=== PATIENT | male | born 1935 | race Caucasian/White ===

== ENCOUNTER 2018-04-16 05:02 | Inpatient (IN) | payer OTHER ==
[2018-04-16] MEDS ORDERED: morphine 2 MG INJ IV ×2 (06:30→14:30)
[2018-04-16] MEDS: ALBUTEROL/IPRATROPIUM (NEB) 3 ML AMP HHN ×4 (08:14→20:58)
[2018-04-16 12:24] LABS: ADD MAN DIFF? NO; BASOPHIL # 0.1 10^3/ul (0.0-0.1); BASOPHILS % 0.8 % (0.0-2.0); EOSINOPHILS # 0.1 10^3/ul (0.0-0.5); EOSINOPHILS % 1.5 % (0.0-7.0); HEMATOCRIT 30.2 % (42.0-52.0); LYMPHOCYTES # 1.3 10^3/ul (0.8-2.9); LYMPHOCYTES % 14.2 % (15.0-51.0); MEAN CORPUSCULAR HEMOGLOBIN 31.1 pg (29.0-33.0); MEAN CORPUSCULAR HGB CONC 33.1 g/dl (32.0-37.0); MEAN CORPUSCULAR VOLUME 93.8 fl (82.0-101.0); MEAN PLATELET VOLUME 9.3 fl (7.4-10.4); MONOCYTE # 0.9 10^3/ul (0.3-0.9); MONOCYTES % 9.9 % (0.0-11.0); NEUTROPHIL # 6.8 10^3/ul (1.6-7.5); NEUTROPHILS % 73.2 % (39.0-77.0); PLATELET COUNT 533 10^3/UL (140-415); RED BLOOD COUNT 3.22 10^6/ul (4.70-6.10); RED CELL DISTRIBUTION WIDTH 14.9 % (11.5-14.5)
[2018-04-16 12:24] LABS: WHITE BLOOD COUNT 9.3 10^3/ul (4.8-10.8)
[2018-04-16 12:42] LABS: ALANINE AMINOTRANSFERASE 68 IU/L (13-69); ALBUMIN 3.3 g/dl (3.3-4.9); ALBUMIN/GLOBULIN RATIO 0.76; ALKALINE PHOSPHATASE 465 IU/L (42-121); ANION GAP 15 (8-16); ASPARTATE AMINO TRANSFERASE 56 IU/L (15-46); BILIRUBIN,INDIRECT 0.1 mg/dl (0-1.1); BILIRUBIN,TOTAL 0.1 mg/dl (0.2-1.3); BLOOD UREA NITROGEN 48 mg/dl (7-20); CREATININE 5.66 mg/dl (0.61-1.24); GLUCOSE 113 mg/dl (70-220); TOTAL PROTEIN 7.6 g/dl (6.1-8.1)
[2018-04-16 12:44] LABS: CARBON DIOXIDE 31 mmol/L (21-31); CHLORIDE 90 mmol/L (97-110); POTASSIUM 3.9 mmol/L (3.5-5.1); SODIUM 132 mmol/L (135-144)
[2018-04-16] MEDS ORDERED: HYDROCODONE/APAP (5/325) TAB PO ×2 (14:30)
[2018-04-16] MEDS ORDERED: NACL 0.9% 3 ML SYG IV (14:30)
[2018-04-16] MEDS ORDERED: ACETAMINOPHEN 325 MG TAB PO (14:30)
[2018-04-16] MEDS ORDERED: ACETAMINOPHEN 650 MG SUPP PR (14:30)
[2018-04-16] MEDS ORDERED: ONDANSETRON 4 MG INJ IV (14:30)
[2018-04-16] MEDS: CALCIUM ACETATE 667 MG CAP PO (17:18)
[2018-04-16] MEDS: SEVELAMER 800 MG TAB PO (17:18)
[2018-04-16 17:21] LABS: INR 1.28; PROTIME 16.2 Sec (11.9-14.9); PT RATIO 1.3
[2018-04-16 17:22] LABS: IRON 41 ug/dl (35-150)
[2018-04-16 17:32] LABS: % IRON SATURATION 24 % SAT (22-52); TOTAL IRON BINDING CAPACITY 169 ug/dl (241-421)
[2018-04-16] MEDS: EPOETIN 10000 UNITS/1 ML INJ (ESRD) SC (18:05)
[2018-04-16] MEDS: LEVETIRACETAM 500 MG TAB PO (20:10)
[2018-04-16] MEDS ORDERED: LEVETIRACETAM 500 MG PO (21:00)
[2018-04-16 23:58] LABS: HEPATITIS B SURFACE ANTIGEN NEGATIVE (NEGATIVE)
[2018-04-17 00:35] LABS: HEPATITIS B SURFACE ANTIBODY POSITIVE (NEGATIVE)
[2018-04-17] MEDS: ALBUTEROL/IPRATROPIUM (NEB) 3 ML AMP HHN ×6 (00:47→21:48)
[2018-04-17] MEDS: hydrALAzine 20 MG INJ IV (04:57)
[2018-04-17] MEDS: PANTOPRAZOLE 40 MG INJ IV (06:52)
[2018-04-17] MEDS: LEVOTHYROXINE 50 MCG TAB PO (06:52)
[2018-04-17 07:34] LABS: ADD MAN DIFF? NO
[2018-04-17 07:40] LABS: WHITE BLOOD COUNT 9.9 10^3/ul (4.8-10.8)
[2018-04-17 07:40] LABS: BASOPHIL # 0.1 10^3/ul (0.0-0.1); BASOPHILS % 0.7 % (0.0-2.0); EOSINOPHILS # 0.2 10^3/ul (0.0-0.5); EOSINOPHILS % 1.7 % (0.0-7.0); HEMOGLOBIN 10.5 g/dl (14.0-18.0); LYMPHOCYTES # 1.4 10^3/ul (0.8-2.9); LYMPHOCYTES % 13.8 % (15.0-51.0); MEAN CORPUSCULAR HEMOGLOBIN 31.2 pg (29.0-33.0); MEAN CORPUSCULAR HGB CONC 32.8 g/dl (32.0-37.0); MEAN PLATELET VOLUME 9.4 fl (7.4-10.4); MONOCYTE # 0.9 10^3/ul (0.3-0.9); MONOCYTES % 9.4 % (0.0-11.0); NEUTROPHIL # 7.4 10^3/ul (1.6-7.5); NEUTROPHILS % 73.9 % (39.0-77.0); PLATELET COUNT 547 10^3/UL (140-415); RED BLOOD COUNT 3.37 10^6/ul (4.70-6.10); RED CELL DISTRIBUTION WIDTH 14.6 % (11.5-14.5)
[2018-04-17 07:57] LABS: ALANINE AMINOTRANSFERASE 60 IU/L (13-69); ALBUMIN 3.4 g/dl (3.3-4.9); ALBUMIN/GLOBULIN RATIO 0.73; ALKALINE PHOSPHATASE 499 IU/L (42-121); ANION GAP 13 (8-16); ASPARTATE AMINO TRANSFERASE 47 IU/L (15-46); BILIRUBIN,INDIRECT 0.3 mg/dl (0-1.1); BILIRUBIN,TOTAL 0.3 mg/dl (0.2-1.3); BLOOD UREA NITROGEN 19 mg/dl (7-20); CALCIUM 9.3 mg/dl (8.4-10.2); CARBON DIOXIDE 34 mmol/L (21-31); CHLORIDE 99 mmol/L (97-110); CHOL/HDL RATIO 2.1 RATIO; CHOLESTEROL 108 mg/dl (100-200); CREATININE 3.12 mg/dl (0.61-1.24); GLUCOSE 96 mg/dl (70-220); HDL CHOLESTEROL 50 mg/dl (31-75); LDL CHOLESTEROL,CALCULATED 47 mg/dl; MAGNESIUM 1.9 mg/dl (1.7-2.5); PHOSPHORUS 2.4 mg/dl (2.5-4.9); SODIUM 142 mmol/L (135-144); TRIGLYCERIDES 57 mg/dl (0-149)
[2018-04-17 08:13] LABS: T3 UPTAKE 44.5 % (23.5-40.5); T4 (THYROXINE) 8.1 ug/dl (5.5-11.0)
[2018-04-17] MEDS: SEVELAMER 800 MG TAB PO (08:21)
[2018-04-17] MEDS: CINACALCET 30 MG TAB PO (08:21)
[2018-04-17] MEDS: AMLODIPINE 10 MG TAB PO (08:22)
[2018-04-17] MEDS: CALCIUM ACETATE 667 MG CAP PO ×3 (08:22→18:30)
[2018-04-17] MEDS: LEVETIRACETAM 500 MG TAB PO ×2 (08:22→22:02)
[2018-04-17] MEDS: LORATADINE 10 MG TAB PO (08:22)
[2018-04-17] MEDS: FERROUS SULFATE (EC) 325 MG TAB PO (08:22)
[2018-04-17] MEDS: ASPIRIN (EC) 81 MG TAB PO (08:22)
[2018-04-17] MEDS: MULTIVIT/CA CARB/B CMPLX/FA TAB PO (08:22)
[2018-04-17] MEDS: METOPROLOL (XL) 50 MG TAB PO (08:23)
[2018-04-17] MEDS: BENAZEPRIL 40 MG TAB PO (08:25)
[2018-04-17] MEDS: LIDOCAINE 1% (MDV) 10 ML INJ (09:33)
[2018-04-17 10:13] LABS: ADD MAN DIFF? NO
[2018-04-17 10:14] LABS: WHITE BLOOD COUNT 18.8 10^3/ul (4.8-10.8)
[2018-04-17 10:14] LABS: BASOPHIL # 0.1 10^3/ul (0.0-0.1); BASOPHILS % 0.4 % (0.0-2.0); EOSINOPHILS # 0.2 10^3/ul (0.0-0.5); EOSINOPHILS % 1.1 % (0.0-7.0); HEMATOCRIT 32.3 % (42.0-52.0); HEMOGLOBIN 10.5 g/dl (14.0-18.0); LYMPHOCYTES # 1.4 10^3/ul (0.8-2.9); LYMPHOCYTES % 7.6 % (15.0-51.0); MEAN CORPUSCULAR HEMOGLOBIN 31.3 pg (29.0-33.0); MEAN CORPUSCULAR HGB CONC 32.5 g/dl (32.0-37.0); MEAN CORPUSCULAR VOLUME 96.4 fl (82.0-101.0); MEAN PLATELET VOLUME 9.3 fl (7.4-10.4); MONOCYTE # 1.1 10^3/ul (0.3-0.9); MONOCYTES % 5.8 % (0.0-11.0); NEUTROPHIL # 15.7 10^3/ul (1.6-7.5); NEUTROPHILS % 83.5 % (39.0-77.0); PLATELET COUNT 543 10^3/UL (140-415); RED BLOOD COUNT 3.35 10^6/ul (4.70-6.10); RED CELL DISTRIBUTION WIDTH 14.9 % (11.5-14.5)
[2018-04-17 10:58] LABS: FLUID GLUCOSE 106 mg/dl
[2018-04-17 11:03] LABS: FLUID TOTAL PROTEIN 5.2 g/dl
[2018-04-17] MEDS ORDERED: CEFEPIME 1GM/50 ML (PMX) 50 ML IVPB (12:30)
[2018-04-17] MEDS ORDERED: VANCOMYCIN IV PER PHARMACY XX (13:00)
[2018-04-17 14:27] LABS: LACTIC ACID 2.9 mmol/L (0.5-2.0)
[2018-04-17] MEDS: CEFEPIME 1GM/50 ML (PMX) 50 ML IVPB (14:40)
[2018-04-17] MEDS: morphine LIQ (10 MG/5 ML) CUP PO (14:57)
[2018-04-17] MEDS: VANCOMYCIN 1.25 GM in SOD CHLORIDE 0.9% 250 ML IVPB (15:42)
[2018-04-18] MEDS: ALBUTEROL/IPRATROPIUM (NEB) 3 ML AMP HHN ×6 (01:25→21:18)
[2018-04-18] MEDS: LEVOTHYROXINE 50 MCG TAB PO (06:00)
[2018-04-18] MEDS: PANTOPRAZOLE 40 MG INJ IV (06:00)
[2018-04-18] MEDS: CINACALCET 30 MG TAB PO (08:44)
[2018-04-18] MEDS: MULTIVIT/CA CARB/B CMPLX/FA TAB PO (08:44)
[2018-04-18] MEDS: LEVETIRACETAM 500 MG TAB PO ×2 (08:44→20:29)
[2018-04-18] MEDS: ASPIRIN (EC) 81 MG TAB PO (08:44)
[2018-04-18] MEDS: LORATADINE 10 MG TAB PO (08:44)
[2018-04-18] MEDS: CALCIUM ACETATE 667 MG CAP PO ×3 (08:45→17:46)
[2018-04-18] MEDS: AMLODIPINE 10 MG TAB PO (09:00)
[2018-04-18] MEDS: BENAZEPRIL 40 MG TAB PO (09:00)
[2018-04-18] MEDS: METOPROLOL (XL) 50 MG TAB PO (09:00)
[2018-04-18 11:11] LABS: ADD MAN DIFF? NO
[2018-04-18 11:35] LABS: ANION GAP 17 (8-16); BLOOD UREA NITROGEN 32 mg/dl (7-20); CALCIUM 8.7 mg/dl (8.4-10.2); CARBON DIOXIDE 26 mmol/L (21-31); CHLORIDE 98 mmol/L (97-110); CREATININE 4.74 mg/dl (0.61-1.24); GLUCOSE 111 mg/dl (70-220); MAGNESIUM 1.9 mg/dl (1.7-2.5); PHOSPHORUS 2.8 mg/dl (2.5-4.9); POTASSIUM 4.8 mmol/L (3.5-5.1); SODIUM 136 mmol/L (135-144)
[2018-04-18 12:16] LABS: WHITE BLOOD COUNT 10.7 10^3/ul (4.8-10.8)
[2018-04-18 12:16] LABS: BASOPHIL # 0.1 10^3/ul (0.0-0.1); BASOPHILS % 0.9 % (0.0-2.0); EOSINOPHILS # 0.5 10^3/ul (0.0-0.5); EOSINOPHILS % 4.2 % (0.0-7.0); HEMATOCRIT 30.3 % (42.0-52.0); HEMOGLOBIN 9.7 g/dl (14.0-18.0); LYMPHOCYTES # 1.2 10^3/ul (0.8-2.9); MEAN CORPUSCULAR HEMOGLOBIN 31.4 pg (29.0-33.0); MEAN CORPUSCULAR VOLUME 98.1 fl (82.0-101.0); MEAN PLATELET VOLUME 9.4 fl (7.4-10.4); MONOCYTES % 9.2 % (0.0-11.0); NEUTROPHIL # 7.9 10^3/ul (1.6-7.5); NEUTROPHILS % 74.1 % (39.0-77.0); PLATELET COUNT 525 10^3/UL (140-415); RED BLOOD COUNT 3.09 10^6/ul (4.70-6.10); RED CELL DISTRIBUTION WIDTH 15.1 % (11.5-14.5)
[2018-04-18] MEDS: CEFEPIME 1GM/50 ML (PMX) 50 ML IVPB (17:46)
[2018-04-18] MEDS: EPOETIN 10000 UNITS/1 ML INJ (ESRD) SC (17:48)
[2018-04-19] MEDS: ALBUTEROL/IPRATROPIUM (NEB) 3 ML AMP HHN ×6 (01:04→21:28)
[2018-04-19] MEDS: LEVOTHYROXINE 50 MCG TAB PO (06:01)
[2018-04-19] MEDS: PANTOPRAZOLE 40 MG INJ IV (06:01)
[2018-04-19 06:57] LABS: LACTIC ACID 1.3 mmol/L (0.5-2.0)
[2018-04-19 07:42] LABS: VANCOMYCIN,RANDOM 9.8 ug/ml
[2018-04-19 07:58] LABS: ANION GAP 13 (8-16); BLOOD UREA NITROGEN 17 mg/dl (7-20); CALCIUM 8.5 mg/dl (8.4-10.2); CARBON DIOXIDE 30 mmol/L (21-31); CHLORIDE 100 mmol/L (97-110); CREATININE 3.01 mg/dl (0.61-1.24); GLUCOSE 100 mg/dl (70-220); POTASSIUM 4.7 mmol/L (3.5-5.1); SODIUM 138 mmol/L (135-144)
[2018-04-19] MEDS: CALCIUM ACETATE 667 MG CAP PO ×3 (08:53→17:22)
[2018-04-19] MEDS: MULTIVIT/CA CARB/B CMPLX/FA TAB PO (08:53)
[2018-04-19] MEDS: LORATADINE 10 MG TAB PO (08:53)
[2018-04-19] MEDS: ASPIRIN (EC) 81 MG TAB PO (08:53)
[2018-04-19] MEDS: LEVETIRACETAM 500 MG TAB PO ×2 (08:53→20:28)
[2018-04-19] MEDS: CINACALCET 30 MG TAB PO (08:53)
[2018-04-19] MEDS: METOPROLOL (XL) 50 MG TAB PO (08:54)
[2018-04-19] MEDS: BENAZEPRIL 40 MG TAB PO (08:54)
[2018-04-19] MEDS: AMLODIPINE 10 MG TAB PO (08:55)
[2018-04-19] MEDS: VANCOMYCIN 1 GM 250 ML IVPB (11:49)
[2018-04-19] MEDS: CEFEPIME 1GM/50 ML (PMX) 50 ML IVPB (14:18)
[2018-04-20] MEDS: ALBUTEROL/IPRATROPIUM (NEB) 3 ML AMP HHN ×6 (00:51→20:35)
[2018-04-20] MEDS: LEVOTHYROXINE 50 MCG TAB PO (07:28)
[2018-04-20] MEDS: PANTOPRAZOLE 40 MG INJ IV ×2 (07:28→12:17)
[2018-04-20] MEDS: CALCIUM ACETATE 667 MG CAP PO ×3 (08:19→17:52)
[2018-04-20] MEDS: LORATADINE 10 MG TAB PO (08:19)
[2018-04-20] MEDS: MULTIVIT/CA CARB/B CMPLX/FA TAB PO (08:19)
[2018-04-20] MEDS: LEVETIRACETAM 500 MG TAB PO ×2 (08:19→21:14)
[2018-04-20] MEDS: AMLODIPINE 10 MG TAB PO (08:19)
[2018-04-20] MEDS: ASPIRIN (EC) 81 MG TAB PO (08:19)
[2018-04-20] MEDS: METOPROLOL (XL) 50 MG TAB PO (08:20)
[2018-04-20] MEDS: BENAZEPRIL 40 MG TAB PO (08:20)
[2018-04-20] MEDS: CINACALCET 30 MG TAB PO (08:22)
[2018-04-20] MEDS: CEFEPIME 1GM/50 ML (PMX) 50 ML IVPB (13:05)
[2018-04-21] MEDS: ALBUTEROL/IPRATROPIUM (NEB) 3 ML AMP HHN ×6 (00:44→20:45)
[2018-04-21] MEDS: MAGNESIUM HYDROXIDE 30ML CUP PO (04:51)
[2018-04-21] MEDS: LEVOTHYROXINE 50 MCG TAB PO (06:48)
[2018-04-21] MEDS: PANTOPRAZOLE 40 MG INJ IV (10:33)
[2018-04-21] MEDS: MULTIVIT/CA CARB/B CMPLX/FA TAB PO (10:37)
[2018-04-21] MEDS: LEVETIRACETAM 500 MG TAB PO ×2 (10:37→21:33)
[2018-04-21] MEDS: CALCIUM ACETATE 667 MG CAP PO ×3 (10:37→17:51)
[2018-04-21] MEDS: METOPROLOL (XL) 50 MG TAB PO (10:38)
[2018-04-21] MEDS: ASPIRIN (EC) 81 MG TAB PO (10:38)
[2018-04-21] MEDS: LORATADINE 10 MG TAB PO (10:38)
[2018-04-21] MEDS: CINACALCET 30 MG TAB PO (10:38)
[2018-04-21] MEDS: AMLODIPINE 10 MG TAB PO (10:39)
[2018-04-21] MEDS: BENAZEPRIL 40 MG TAB PO (10:39)
[2018-04-21] MEDS: CEFEPIME 1GM/50 ML (PMX) 50 ML IVPB (17:49)
[2018-04-21] MEDS: EPOETIN 10000 UNITS/1 ML INJ (ESRD) SC (17:50)
[2018-04-22] MEDS: ALBUTEROL/IPRATROPIUM (NEB) 3 ML AMP HHN ×6 (00:41→19:58)
[2018-04-22] MEDS: LEVOTHYROXINE 50 MCG TAB PO (06:31)
[2018-04-22] MEDS: PANTOPRAZOLE 40 MG INJ IV (06:31)
[2018-04-22 07:48] LABS: VANCOMYCIN,RANDOM 14.1 ug/ml
[2018-04-22] MEDS: MULTIVIT/CA CARB/B CMPLX/FA TAB PO (09:05)
[2018-04-22] MEDS: LORATADINE 10 MG TAB PO (09:05)
[2018-04-22] MEDS: LEVETIRACETAM 500 MG TAB PO ×2 (09:05→21:23)
[2018-04-22] MEDS: CINACALCET 30 MG TAB PO (09:05)
[2018-04-22] MEDS: ASPIRIN (EC) 81 MG TAB PO (09:05)
[2018-04-22] MEDS: CALCIUM ACETATE 667 MG CAP PO ×3 (09:05→17:38)
[2018-04-22] MEDS: AMLODIPINE 10 MG TAB PO (09:07)
[2018-04-22] MEDS: METOPROLOL (XL) 50 MG TAB PO (09:07)
[2018-04-22] MEDS: BENAZEPRIL 40 MG TAB PO (09:08)
[2018-04-22] MEDS: LIDOCAINE 1% (MDV) 10 ML INJ (15:31)
[2018-04-22] MEDS: morphine LIQ (10 MG/5 ML) CUP PO (21:23)
[2018-04-23] MEDS: ALBUTEROL/IPRATROPIUM (NEB) 3 ML AMP HHN ×6 (01:38→20:19)
[2018-04-23 05:39] LABS: ADD MAN DIFF? NO
[2018-04-23 05:52] LABS: BASOPHIL # 0.1 10^3/ul (0.0-0.1); BASOPHILS % 0.7 % (0.0-2.0); EOSINOPHILS # 0.8 10^3/ul (0.0-0.5); EOSINOPHILS % 6.9 % (0.0-7.0); HEMATOCRIT 32.5 % (42.0-52.0); HEMOGLOBIN 10.2 g/dl (14.0-18.0); LYMPHOCYTES # 1.7 10^3/ul (0.8-2.9); LYMPHOCYTES % 15.8 % (15.0-51.0); MEAN CORPUSCULAR HEMOGLOBIN 30.4 pg (29.0-33.0); MEAN CORPUSCULAR HGB CONC 31.4 g/dl (32.0-37.0); MEAN PLATELET VOLUME 9.5 fl (7.4-10.4); MONOCYTE # 0.9 10^3/ul (0.3-0.9); MONOCYTES % 8.3 % (0.0-11.0); NEUTROPHIL # 7.4 10^3/ul (1.6-7.5); PLATELET COUNT 588 10^3/UL (140-415); RED BLOOD COUNT 3.35 10^6/ul (4.70-6.10); RED CELL DISTRIBUTION WIDTH 14.4 % (11.5-14.5)
[2018-04-23 05:52] LABS: WHITE BLOOD COUNT 10.9 10^3/ul (4.8-10.8)
[2018-04-23] MEDS: LEVOTHYROXINE 50 MCG TAB PO (06:09)
[2018-04-23 06:13] LABS: ANION GAP 12 (8-16); BLOOD UREA NITROGEN 22 mg/dl (7-20); CALCIUM 8.5 mg/dl (8.4-10.2); CARBON DIOXIDE 32 mmol/L (21-31); CHLORIDE 101 mmol/L (97-110); CREATININE 4.94 mg/dl (0.61-1.24); GLUCOSE 92 mg/dl (70-220); MAGNESIUM 2.3 mg/dl (1.7-2.5); PHOSPHORUS 2.2 mg/dl (2.5-4.9); SODIUM 140 mmol/L (135-144)
[2018-04-23] MEDS: AMLODIPINE 10 MG TAB PO (09:00)
[2018-04-23] MEDS: BENAZEPRIL 40 MG TAB PO (09:00)
[2018-04-23] MEDS: ASPIRIN (EC) 81 MG TAB PO (10:32)
[2018-04-23] MEDS: LORATADINE 10 MG TAB PO (10:32)
[2018-04-23] MEDS: LEVETIRACETAM 500 MG TAB PO (10:32)
[2018-04-23] MEDS: METOPROLOL (XL) 50 MG TAB PO (10:32)
[2018-04-23] MEDS: CALCIUM ACETATE 667 MG CAP PO ×3 (10:33→18:17)
[2018-04-23] MEDS: CINACALCET 30 MG TAB PO (10:33)
[2018-04-23] MEDS: MULTIVIT/CA CARB/B CMPLX/FA TAB PO (10:33)
[2018-04-23] MEDS: EPOETIN 10000 UNITS/1 ML INJ (ESRD) SC (18:19)
[2018-04-23] MEDS: LEVETIRACETAM (100 MG/ML) 5ML CUP PO (21:41)
[2018-04-24] MEDS: ALBUTEROL/IPRATROPIUM (NEB) 3 ML AMP HHN ×6 (01:25→21:30)
[2018-04-24] MEDS: LEVOTHYROXINE 50 MCG TAB PO (06:19)
[2018-04-24] MEDS: MAGNESIUM HYDROXIDE 30ML CUP PO (07:02)
[2018-04-24] MEDS: CINACALCET 30 MG TAB PO (08:15)
[2018-04-24] MEDS: LORATADINE 10 MG TAB PO (08:15)
[2018-04-24] MEDS: ASPIRIN (EC) 81 MG TAB PO (08:15)
[2018-04-24] MEDS: MULTIVIT/CA CARB/B CMPLX/FA TAB PO (08:15)
[2018-04-24] MEDS: LEVETIRACETAM (100 MG/ML) 5ML CUP PO ×2 (08:15→20:41)
[2018-04-24] MEDS: CALCIUM ACETATE 667 MG CAP PO ×3 (08:15→17:36)
[2018-04-24] MEDS: METOPROLOL (XL) 50 MG TAB PO (08:16)
[2018-04-24] MEDS: AMLODIPINE 10 MG TAB PO (08:16)
[2018-04-24] MEDS: BENAZEPRIL 40 MG TAB PO (09:00)
[2018-04-25] MEDS: ALBUTEROL/IPRATROPIUM (NEB) 3 ML AMP HHN ×6 (01:19→20:02)
[2018-04-25] MEDS: LEVOTHYROXINE 50 MCG TAB PO (06:17)
[2018-04-25] MEDS: DOCUSATE SODIUM 100 MG CAP PO (06:59)
[2018-04-25] MEDS: CALCIUM ACETATE 667 MG CAP PO ×3 (07:35→17:33)
[2018-04-25] MEDS: BENAZEPRIL 40 MG TAB PO (09:00)
[2018-04-25] MEDS: METOPROLOL (XL) 50 MG TAB PO (09:00)
[2018-04-25] MEDS: AMLODIPINE 10 MG TAB PO (09:00)
[2018-04-25] MEDS: LEVETIRACETAM (100 MG/ML) 5ML CUP PO ×2 (12:01→20:24)
[2018-04-25] MEDS: LORATADINE 10 MG TAB PO (12:01)
[2018-04-25] MEDS: CINACALCET 30 MG TAB PO (12:01)
[2018-04-25] MEDS: MULTIVIT/CA CARB/B CMPLX/FA TAB PO (12:02)
[2018-04-25] MEDS: ASPIRIN (EC) 81 MG TAB PO (12:02)
[2018-04-25] MEDS: EPOETIN 10000 UNITS/1 ML INJ (ESRD) SC (17:34)
[2018-04-26] MEDS: ALBUTEROL/IPRATROPIUM (NEB) 3 ML AMP HHN ×3 (01:10→09:44)
[2018-04-26 05:17] LABS: ADD MAN DIFF? NO
[2018-04-26 05:24] LABS: WHITE BLOOD COUNT 10.5 10^3/ul (4.8-10.8)
[2018-04-26 05:24] LABS: BASOPHIL # 0.1 10^3/ul (0.0-0.1); EOSINOPHILS # 0.7 10^3/ul (0.0-0.5); EOSINOPHILS % 6.4 % (0.0-7.0); HEMATOCRIT 36.6 % (42.0-52.0); HEMOGLOBIN 11.7 g/dl (14.0-18.0); LYMPHOCYTES # 2.1 10^3/ul (0.8-2.9); LYMPHOCYTES % 19.8 % (15.0-51.0); MEAN CORPUSCULAR VOLUME 97.1 fl (82.0-101.0); MEAN PLATELET VOLUME 9.5 fl (7.4-10.4); MONOCYTE # 0.8 10^3/ul (0.3-0.9); MONOCYTES % 7.4 % (0.0-11.0); NEUTROPHIL # 6.8 10^3/ul (1.6-7.5); NEUTROPHILS % 65.1 % (39.0-77.0); PLATELET COUNT 617 10^3/UL (140-415); RED BLOOD COUNT 3.77 10^6/ul (4.70-6.10); RED CELL DISTRIBUTION WIDTH 14.5 % (11.5-14.5)
[2018-04-26 05:52] LABS: ANION GAP 11 (8-16); BLOOD UREA NITROGEN 14 mg/dl (7-20); CALCIUM 8.8 mg/dl (8.4-10.2); CARBON DIOXIDE 32 mmol/L (21-31); CHLORIDE 100 mmol/L (97-110); GLUCOSE 96 mg/dl (70-220); MAGNESIUM 2.4 mg/dl (1.7-2.5); PHOSPHORUS 1.6 mg/dl (2.5-4.9); POTASSIUM 4.5 mmol/L (3.5-5.1); SODIUM 138 mmol/L (135-144)
[2018-04-26] MEDS: BISACODYL 10 MG SUPP PR (06:12)
[2018-04-26] MEDS: LEVOTHYROXINE 50 MCG TAB PO (06:12)
[2018-04-26] MEDS: LEVETIRACETAM (100 MG/ML) 5ML CUP PO (09:24)
[2018-04-26] MEDS: NEUTRA-PHOS 250 MG PACKET PO (09:24)
[2018-04-26] MEDS: LORATADINE 10 MG TAB PO (09:25)
[2018-04-26] MEDS: BENAZEPRIL 40 MG TAB PO (09:25)
[2018-04-26] MEDS: MULTIVIT/CA CARB/B CMPLX/FA TAB PO (09:26)
[2018-04-26] MEDS: CINACALCET 30 MG TAB PO (09:26)
[2018-04-26] MEDS: METOPROLOL (XL) 50 MG TAB PO (09:26)
[2018-04-26] MEDS: ASPIRIN (EC) 81 MG TAB PO (09:26)
[2018-04-26] MEDS: AMLODIPINE 10 MG TAB PO (09:26)
== END 2018-04-26 11:40 | disposition home health service (06) | DRG 186 ==
LOC: MS4 05:02 → PP2 04-22 16:14
PROC: 5A1D70Z Performance of Urinary Filtration, Intermittent, Less than 6 Hours Per Day (ICD-10-PCS; 2018-04-16)
PROC: 0W9B3ZZ Drainage of Left Pleural Cavity, Percutaneous Approach (ICD-10-PCS; 2018-04-17)
PROC: 5A1D70Z Performance of Urinary Filtration, Intermittent, Less than 6 Hours Per Day (ICD-10-PCS; 2018-04-18)
PROC: 5A1D70Z Performance of Urinary Filtration, Intermittent, Less than 6 Hours Per Day (ICD-10-PCS; 2018-04-21)
PROC: 0W9B3ZZ Drainage of Left Pleural Cavity, Percutaneous Approach (ICD-10-PCS; principal; 2018-04-22)
PROC: 5A1D70Z Performance of Urinary Filtration, Intermittent, Less than 6 Hours Per Day (ICD-10-PCS; 2018-04-23)
PROC: 5A1D70Z Performance of Urinary Filtration, Intermittent, Less than 6 Hours Per Day (ICD-10-PCS; 2018-04-25)
DX: J90 Pleural effusion, not elsewhere classified (principal); N18.6 End stage renal disease; G92 Toxic encephalopathy; I12.0 Hypertensive chronic kidney disease with stage 5 chronic kidney disease or end stage renal disease; E87.1 Hypo-osmolality and hyponatremia; Z99.2 Dependence on renal dialysis; E78.5 Hyperlipidemia, unspecified; E61.1 Iron deficiency; D63.1 Anemia in chronic kidney disease; E03.9 Hypothyroidism, unspecified; I48.91 Unspecified atrial fibrillation; E83.89 Other disorders of mineral metabolism; G40.909 Epilepsy, unspecified, not intractable, without status epilepticus
CPT/HCPCS: 71045; 71250; 76942; 80048; 80053; 80061; 80202; 82728; 82945; 83036; 83540; 83605; 83735; 84100; 84157; 84436; 84443; 84479; 85025; 85610; 86706; 87070; 87081; 87102; 87116; 87340; 88104; 88305; 90935; 92526; 92610; 93306; 94640; 94664; 97110; 97162; 97530